=== PATIENT | female | born 1945 ===

== ENCOUNTER 2016-07-06 10:37 | Day surgery (SDC) | payer MEDICARE ==
[2016-06-30 09:59] VITALS: BMI 38.4
[2016-07-06] MEDS ORDERED: Bupivacaine HCl 0.25% PF (10 ml) Inj ONE ×2 (12:21)
[2016-07-06] MEDS ORDERED: ceFAZolin IV 1 gm in Dextrose 0 ML IVPB ONE (12:21)
[2016-07-06] MEDS ORDERED: Lidocaine 1% Inj (20ml) ONE (12:22)
[2016-07-06] MEDS ORDERED: Lactated Ringer's 1,000 ML IV ONE (12:30)
[2016-07-06] MEDS ORDERED: Midazolam 2 MG/2 ML VIAL ONE (12:35)
[2016-07-06] MEDS ORDERED: Propofol 10 mg/ml Inj (20 ML) ONE (12:35)
[2016-07-06] MEDS ORDERED: ceFAZolin IV 1 gm in Dextrose 50 ML IVPB ONE (12:41)
--- NOTE | 2016-07-06 13:16 | PCM.SURG1 ---
Surgeon's Initial Post Op Note - Surgeon's Notes Surgeon: Tha Spray Maker: [id number], Rosendo MS3 Type of Anesthesia: General IV Pre-Operative Diagnosis: L shoulder lipoma Operative Findings: intramuscular lipoma Post-Operative Diagnosis: L shoulder lipoma Operation Performed: Excision of L shoulder lipoma Specimen/Specimens Removed: Lipoma Estimated Blood Loss: EBL {In ML}: 10 Blood Products Given: N/A Drains Used: No Drains Post-Op Condition: Good Date of Surgery/Procedure: 07/06/16 Time of Surgery/Procedure: 12:30
[2016-07-06] MEDS ORDERED: HYDROmorphone 0.5 mg/0.5 ml ISec IVP PRN (13:18)
[2016-07-06] MEDS ORDERED: Oxycodone/Acetaminophen 5/325 mg Tab PO ONE (13:30)
[2016-07-06] MEDS ORDERED: Lactated Ringer's 1,000 ML IV SCH (13:30)
[2016-07-06] MEDS ORDERED: Lactated Ringer's 500 ML IV ONE ×2 (14:30→15:54)
[2016-07-06 16:04] VITALS: RESP 14
[2016-07-06 17:04] VITALS: O2SAT 98
[2016-07-06 17:05] VITALS: BP 123/84; PULSE 69; TEMP 97.8
--- NOTE | 2016-07-06 18:38 | OP ---
PROCEDURE DATE: 07/06/2016 SURGEON: Dr. Almazan. [employer] CONSULTANT: Dr. Bedoya. ANESTHESIA: IV sedation with local Dr. Dupree and BRANDON Mackey. PREOPERATIVE DIAGNOSIS: Lipoma left shoulder. POSTOPERATIVE DIAGNOSIS: Lipoma left shoulder. PROCEDURE: Excision of lipoma left shoulder. DESCRIPTION OF OPERATION: With the patient in the supine position, having received IV sedation, the left upper chest was prepped and draped in the usual sterile manner. The patient was noted to have a rounded mass in the anterior aspect of the left shoulder essentially in the deltopectoral groove and the skin overlying this area was infiltrated with 1% lidocaine and a sloping incision was made following the direction of the deltopectoral groove. This was taken down through the subcutaneous tissue with the mass being palpable deep to this level and the mass was visualized underlying a few fibers of the deltoid muscle, which were split to expose a yellow firm lobulated mass. The mass was bluntly freed from surrounding connections down to the level of the coracoid process and the mass was delivered through the surgical wound. The operative site was examined for hemostasis and irrigated and closure was performed with running subcuticular suture of 4-0 Monocryl and Dermabond. A dry sterile dressing was applied. The patient tolerated the procedure well and transferred to the recovery room in stable condition. Estimated blood loss for the procedure was 10 mL. Xiomara Almazan MD cc: [id number] TT: 07/06/2016 18:37:40 salome PRECIADO
== END 2016-07-06 16:45 | disposition home or self-care (01) ==
LOC: C.SDS 10:37
PROVIDERS: ATTEND Specialist
DX: D17.22 Benign lipomatous neoplasm of skin and subcutaneous tissue of left arm (principal); D17.9 Benign lipomatous neoplasm, unspecified
CPT/HCPCS: 11406; 88304; J0690; J1170; J2250; J2405; J2704; J2765; J3010; J7120